=== PATIENT | male | born 1960 | race Caucasian/White ===

== ENCOUNTER 2016-05-20 00:04 | Emergency (ER) | payer OTHER ==
[~2016-05-20] VITALS: Ht 182.9 cm; Wt 147.6 kg
[~2016-05-20 00:04] MED LIST: ADULT LOW DOSE81 M1 PO; CELEXA10 M1 PO; FORTAMET500 M1 PO; HYDROCHLOROTHIA25 MG PO; LOTREL 10/21 CAPSULE PO; MULTIVITAMIN1 EAC1 PO; NEXIUM20 MG PO; VITAMIN B650 MG PO; VITAMINE B12; [UNRECOGNIZED DRUG - REMARK]; aspirin; celexa; crestor; lotrel; metformin; nexium
[2016-05-20] MEDS ORDERED: CIPROFLOXACIN H10 ML RIGHT EYE (01:29)
[2016-05-20 01:56] VITALS: BP 178/91
== END 2016-05-20 02:05 | disposition home or self-care (01) ==
LOC: EME 00:04
DX: H10.89 Other conjunctivitis (principal); E11.9 Type 2 diabetes mellitus without complications; E78.5 Hyperlipidemia, unspecified; I10 Essential (primary) hypertension
CPT/HCPCS: 99281; 99284